=== PATIENT | male | born 1955 | race Caucasian/White ===

== ENCOUNTER 2022-12-01 17:34 | Emergency (ER) | payer MEDICARE ==
[2022-12-01] MEDS ORDERED: fentaNYL 50 mcg/mL 1 mL Vial ONE (18:26)
[2022-12-01] MEDS ORDERED: Ketorolac Tromethamine 30 MG/ML VIAL ONE (18:27)
[2022-12-01] MEDS ORDERED: Dexameth. Sod Phosp. 10 MG/ML (CHEMO USE ONLY) ONE (18:27)
== END 2022-12-01 18:55 | disposition home or self-care (01) ==
LOC: ERS 17:34
DX: M54.40 Lumbago with sciatica, unspecified side (principal); I10 Essential (primary) hypertension; F17.210 Nicotine dependence, cigarettes, uncomplicated
CPT/HCPCS: 96372; 99283; J1100; J1885; J3010

== ENCOUNTER 2023-01-08 12:40 | Outpatient (CLI) | payer MEDICARE | END 2023-01-08 12:41 | disposition home or self-care (01) | LOC: ULT 12:40 | PROVIDERS: ATTEND Nurse Practitioner Family | DX: M79.604 Pain in right leg (principal); M79.605 Pain in left leg; I70.201 Unspecified atherosclerosis of native arteries of extremities, right leg | CPT/HCPCS: 93923 ==

== ENCOUNTER 2023-01-27 16:08 | Inpatient (IN) | payer MEDICARE, OTHER ==
[2023-01-27] MEDS ORDERED: traMADol HCl 50 MG TAB PO PRN (22:10)
[2023-01-27] MEDS ORDERED: Acetaminophen/Codeine 30-300mg Tablet PO PRN (22:10)
[2023-01-27] MEDS ORDERED: diphenhydrAMINE 25 MG CAP PO PRN (22:10)
[2023-01-27] MEDS ORDERED: Ondansetron PF 4 MG/2 ML Vial IVP PRN (22:10)
[2023-01-27] MEDS ORDERED: Acetaminophen 325 MG TAB PO PRN (22:10)
[2023-01-27] MEDS ORDERED: Milk Of Magnesia 30 ML UDCUP PO PRN (22:10)
[2023-01-27] MEDS ORDERED: tiZANidine HCl 4 MG TAB PO PRN (22:16)
[2023-01-27 22:24] VITALS: BMI 22.0
[2023-01-27] MEDS ORDERED: cloNIDine 0.2 MG TAB PO SCH (22:45)
[2023-01-27] MEDS: HYDROcodone/Acetaminophen 7.5/325 mg Tablet PO PRN (23:09)
[2023-01-28 01:19] LABS: #Basophils 0.1 thou/uL (0.0-0.2); #Eosinphils 0.3 thou/uL (0.0-0.7); #Monocytes 1.1 thou/uL (0.11-0.59); #Neutrophils 8.4 thou/uL (1.40-6.50); %Basophils 0.7 % (0.0-1.0); %Eosinophils 2.5 % (0.0-10.0); %Lymphocytes 23.2 % (21.0-51.0); %Monocytes 8.4 % (0.0-10.0); %Neutrophils 64.8 % (42.0-75.0); Hematocrit 44.4 % (42.0-52.0); Hemoglobin 15.3 g/dL (14.0-18.0); Mean Corpuscular HGB CONC 34.5 g/dL (32.0-36.0); Mean Corpuscular Hemoglobin 32.7 pg (27.0-31.0); Mean Corpuscular Volume 94.9 fl (78.0-98.0); Mean Platelet Volume 10.1 fL (7.4-10.4); Platelet Count 272 10x3/uL (130-400); RBC Distribution Width 14.1 % (11.5-14.5); Red Blood Cell (RBC) Count 4.68 mill/uL (4.70-6.10)
[2023-01-28 01:36] LABS: PTT 30.9 sec (22.9-36.1); Prothrombin Time 13.2 sec (12.0-14.7)
[2023-01-28 01:41] LABS: Anion Gap 17 mmol/L (10-20); BUN (Urea Nitrogen) 11 mg/dL (8.4-25.7); Calc. Creatinine Clearance 63 mL/min (70-130); Calcium 9.5 mg/dL (7.8-10.44); Carbon Dioxide 25 mmol/L (23-31); Chloride 102 mmol/L (98-107); Estimated GFR 76; Glucose 109 mg/dL (80-115); Potassium 4.6 mmol/L (3.5-5.1); Sodium 139 mmol/L (136-145)
[2023-01-28] MEDS: HYDROcodone/Acetaminophen 7.5/325 mg Tablet PO PRN ×2 (05:19→14:43)
[2023-01-28] MEDS: hydrALAZINE 20 MG/ML VIAL SLOW IVP PRN ×2 (05:25→22:01)
[2023-01-28] MEDS ORDERED: Vancomycin 1 GM VIAL ONE (07:01)
[2023-01-28] MEDS ORDERED: Thrombin 5000 UNITS/5 ML VIAL ONE (07:01)
[2023-01-28] MEDS ORDERED: Midazolam HCl 2 mg/2 ml Vial ONE (07:20)
[2023-01-28] MEDS ORDERED: fentaNYL 50 mcg/mL 1 mL Vial ONE ×2 (07:21→12:20)
[2023-01-28] MEDS ORDERED: HYDROmorphone 2 MG/ML VIAL ONE (07:21)
[2023-01-28] MEDS ORDERED: Clindamycin/D5W 900 mg/50 ml Premix Bag ONE (07:34)
[2023-01-28] MEDS ORDERED: LevoFLOXacin 500 mg/D5W 100 ML BAG ONE (07:34)
[2023-01-28] MEDS ORDERED: hydrALAZINE 20 MG/ML VIAL ONE ×2 (07:36→12:09)
[2023-01-28] MEDS ORDERED: NEOSTIGMINE 3 MG/3 ML SYR 3 MG/3 ML SYRINGE ONE (07:40)
[2023-01-28] MEDS ORDERED: Rocuronium Bromide 10 MG/ML (10ML VIAL) ONE (07:40)
[2023-01-28] MEDS ORDERED: ePHEDrine Sulfate 50 MG/10 ML VIAL ONE (07:40)
[2023-01-28] MEDS ORDERED: Succinylcholine 200 MG/10 ml SYRINGE FS ONE (07:40)
[2023-01-28] MEDS ORDERED: Glycopyrrolate 0.2 MG/ML 5 ML SYRINGE ONE (07:40)
[2023-01-28] MEDS ORDERED: Ondansetron PF 4 MG/2 ML Vial ONE (07:40)
[2023-01-28] MEDS ORDERED: Dexamethasone 20 MG/5 ML VIAL ONE (07:40)
[2023-01-28] MEDS ORDERED: PROPOFOL 200 MG/20 ML VIAL ONE (07:40)
[2023-01-28] MEDS ORDERED: Lidocaine 1% PF 5 ML VIAL ONE (07:40)
[2023-01-28] MEDS ORDERED: Promethazine HCl 25 MG/ML VIAL IM PRN (10:44)
[2023-01-28] MEDS ORDERED: Ondansetron HCl/PF 4 MG/2 ML Vial IVP PRN (10:44)
[2023-01-28] MEDS ORDERED: Morphine Sulfate 2 MG/ML SYRINGE SLOW IVP PRN (10:44)
[2023-01-28] MEDS ORDERED: HYDROmorphone 2 MG/ML VIAL SLOW IVP PRN (10:44)
[2023-01-28] MEDS ORDERED: Meperidine HCl/PF 25 MG/ML VIAL SLOW IVP PRN (10:44)
[2023-01-28] MEDS ORDERED: Ketorolac Tromethamine 30 MG/ML VIAL ONE (12:01)
[2023-01-28] MEDS: Ketorolac Tromethamine 30 MG/ML VIAL IVP SCH ×3 (12:03→23:32)
[2023-01-28] MEDS ORDERED: Diazepam 10 MG/2 ML SYRINGE IVP SCH (12:07)
[2023-01-28] MEDS: Sodium Chloride 0.9% 1,000 ML IV SCH (12:58)
[2023-01-28] MEDS ORDERED: Diazepam 5 MG TAB PO PRN (13:42)
[2023-01-28] MEDS: Morphine 2 MG/ML VIAL SLOW IVP PRN ×2 (14:44→16:10)
[2023-01-28] MEDS: Clindamycin/D5W 900 MG in Premix 1 BAG IVPB SCH (16:11)
[2023-01-29] MEDS: Clindamycin/D5W 900 MG in Premix 1 BAG IVPB SCH (01:00)
[2023-01-29] MEDS: Sodium Chloride 0.9% 1,000 ML IV SCH (01:20)
[2023-01-29 07:57] VITALS: TEMP 98.8
[2023-01-29] MEDS: HYDROcodone/Acetaminophen 7.5/325 mg Tablet PO PRN (08:34)
[2023-01-29] MEDS ORDERED: cloNIDine 0.2 MG TAB PO PRN (08:58)
[2023-01-29 09:45] VITALS: BP 187/81
== END 2023-01-29 11:53 | disposition home or self-care (01) | DRG 520 ==
LOC: SURG A 22:00
PROVIDERS: ADMIT Surgery; ATTEND Surgery
PROC: 0SB20ZZ Excision of Lumbar Vertebral Disc, Open Approach (ICD-10-PCS; principal; 2023-01-28)
PROC: 01NB0ZZ Release Lumbar Nerve, Open Approach (ICD-10-PCS; 2023-01-28)
PROC: 01NR0ZZ Release Sacral Nerve, Open Approach (ICD-10-PCS; 2023-01-28)
DX: M51.16 Intervertebral disc disorders with radiculopathy, lumbar region (principal); I10 Essential (primary) hypertension; F17.210 Nicotine dependence, cigarettes, uncomplicated; M48.061 Spinal stenosis, lumbar region without neurogenic claudication; M48.07 Spinal stenosis, lumbosacral region; Z88.0 Allergy status to penicillin; Z98.890 Other specified postprocedural states
CPT/HCPCS: 36415; 80048; 85025; 85610; 85730; J0360; J1100; J1170; J1885; J1956; J2250; J2272; J2405; J2704; J3010; J3360; J3370; J3490; J7050

== ENCOUNTER 2024-03-08 10:30 | Outpatient (CLI) | payer OTHER | END 2024-03-08 10:31 | disposition home or self-care (01) | LOC: BICCT 10:30 | PROVIDERS: ATTEND Nurse Practitioner Family | DX: Z12.2 Encounter for screening for malignant neoplasm of respiratory organs (principal); F17.210 Nicotine dependence, cigarettes, uncomplicated | CPT/HCPCS: 71271 ==